=== PATIENT | female | born 1995 | race African-American/Black ===

== ENCOUNTER 2016-06-18 09:56 | Emergency (ER) | payer OTHER ==
--- NOTE | 2016-06-18 12:53 | ED NURSING NOTES ---
Clinical Report - Nurses [facility] [address] [place] [address] 06/18/2016 9:58 Patient: HUNTER CHACON TRIAGE Triage time 1030. Acuity: LEVEL 4. Chief Complaint: COUGH, RUNNY NOSE and SORE THROAT. --10:35 Bozena Dodd R.N. 10:30 06/18/16. BP: 140/74. HR: 104. RR: 18. O2 saturation: 100%. Temp: 99.2 F. Pain level now: 0/10. Additional comments: goes between 0-8, 0 now . --10:35 Bozena Dodd R.N. Weight: 72.5 kg estimated. Height/Length: 64 inches Per Patient. BMI: 27.5. Growth Chart Percentile: Weight: 87.1%. Height/Length: 44.9%. --10:32 Bozena Dodd R.N. Medications Mult- vit. --10:32 Bozena Dodd R.N. Ibuprofen Oral 600 mg, 3x a day as needed, last dose 0800. Mult-Vitamin/Fluoride Oral. --10:32 Bozena Dodd R.N. Allergies Penicillin. --10:31 Bozena Dodd R.N. History Arrived by private vehicle. Historian: patient. Unaccompanied. No primary care physician. This started yesterday. She has had a headache. She has had a nasal discharge (mostly clear, slight yellow). ( c/o severe headache and sore throat today, better after motrin). PAST MEDICAL HX: Negative. SURGERY HX: Tonsillectomy. SOCIAL HX: Never smoker. No alcohol use or drug use. --10:35 Bozena Dodd R.N. Interventions ID band on patient. To treatment room. --10:35 Bozena Dodd R.N. PHYSICAL ASSESSMENT 10:36 06/18/16. Ambulatory to room. Patient gowned. GENERAL / NEURO / PSYCH: Alert. Oriented X 4. Appears in no acute distress. HEENT: Runny nose. RESPIRATORY: Respirations not labored. CVS: Capillary refill less than 2 seconds. SKIN: Skin is warm and dry. --10:36 Bozena Dodd R.N. NURSING PROGRESS NOTES 10:30. Patient gowned. Head of bed elevated. Reassurance given. Patient identifiers checked. Call light placed in reach. Side rails up. Bed placed in lowest position. Patient ready for evaluation- chart flagged. --10:35 Bozena Dodd R.N. 10:40. Patient ID band checked for patient name and birthdate: patient confirmed. Throat swab obtained for rapid strep; labeled in the presence of the patient and sent to lab. --10:48 Bozena Dodd R.N. 12:00 resting quietly, waiting for lab results. --12:43 Bozena Dodd R.N. DISPOSITION / DISCHARGE 12:50. Condition at departure: unchanged and stable. No learning barriers present. Discharge instructions provided and reviewed with the patient. Reviewed medication(s) (z-rosa maria, lortab liquid). Patient verbalized understanding. Written instructions provided in Setswana. The patient was discharged home and unaccompanied at time of discharge. She left the Emergency Department ambulatory and via private vehicle. Patient driving. --13:03 Bozena Dodd R.N. 12:50 06/18/16. BP: 132/70. HR: 78. RR: 16. O2 saturation: 100%. Temp: 98.6 F. Pain level now: 0/10. --13:03 Bozena Dodd R.N. Locked/Released at 06/18/2016 13:03 by Bozena Dodd R.N.
--- NOTE | 2016-06-18 12:53 | ED ORDER SUMMARY ---
..... Patient: HUNTER CHACON OrderSheet [facility] VisitID: [id number] [address] [place] [address] 20y, F Registration Date/Time: 06/18/2016 ORDER SHEET Weight: 72.5 kg (estimated) Allergies: Penicillin GENERAL ORDERS: Culture, Strep Screen Urgent (10:50 06/18/2016 DDean R.N. per protocol) (k 10:55 TBergley) (11:09 DDean R.N.) MEDICATION ORDERS: IV FLUIDS: ORDER SHEET NOTES: [Electronically signed by Bozena Dodd R.N. (13:03 06/18/2016)] [Electronically signed by Shivam Talamantes MD (00:47 06/22/2016)] [Electronically locked/signed by Bozena Dodd R.N. (13:03 06/18/2016)]
--- NOTE | 2016-06-18 12:53 | ED CLINICAL REPORT ---
Clinical Report - Physicians/Mid Levels [facility] [address] [place] [address] 06/18/2016 9:58 Patient: HUNTER CHACON Time Seen: 10:58 Jun 18 2016. Arrived- By private vehicle. Historian- patient. CPT: ER phys charges level 3 (#[id number]). HISTORY OF PRESENT ILLNESS Chief Complaint: COUGH, SORE THROAT, MUSCLE ACHES and "FLU". 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 The illness is described as moderate. No cough, sputum production, difficulty breathing or chest discomfort or pain. No fever, muscle aches, chills, hoarseness or nasal congestion. No sinus pressure. She has had a sore throat and sinus drainage. Additional history - The patient has had contact with a sick father and sister. Symptoms of the sick contact include sore throat. (Both contacts have strep.). Similar symptoms previously: None. Recent medical care: Not recently seen/assessed. REVIEW OF SYSTEMS The patient has had a headache. No nausea, vomiting, skin rash, enlarged lymph nodes or joint pain. Denies current . All systems otherwise negative, except as recorded above. PAST HISTORY Tonsillectomy. Medications: Ibuprofen Oral 600 mg, 3x a day as needed, last dose 0800. Mult-Vitamin/Fluoride Oral. Mult- vit. Allergies: Penicillin. SOCIAL HISTORY Never smoker. No alcohol use or drug use. ADDITIONAL NOTES The nursing notes have been reviewed. PHYSICAL EXAM Vital Signs: 06/18/2016 10:30 BP: 140/74. HR: 104. RR: 18. O2 saturation: 100%. Temp: 99.2 F. Pain level now: 0/10. Appearance: Alert. No acute distress. Eyes: Eyes normal inspection. ENT: Nose normal. Moderate generalized pharyngeal erythema. No pharyngeal vesicles or ulcerations. No right tonsillar exudate or left tonsillar exudate. Uvula midline. Neck: Normal inspection. Neck supple. CVS: Normal heart rate and rhythm. Heart sounds normal. No cardiac murmur. Respiratory: No respiratory distress. Breath sounds normal. Abdomen: Nontender. Skin: Skin warm. Normal skin color. No rash. Neuro: Oriented X 3. LABS, X-RAYS, AND EKG Laboratory Tests: Culture, Strep Screen: (SASHA: 06/18/2016 10:40) ( MsgRcvd 06/20/2016 07:02) Final results Test Result Flag Units (Reference) RAPID STREP SCREEN - THROAT DATE: 06/18/16 NEGATIVE SCREEN: RAPID STREP SCREEN NEGATIVE; CONFIRMATION TO FOLLOW . DATE: 06/20/16 NO BETA STREP ISOLATED: NO BETA STREP ISOLATED . PROGRESS AND PROCEDURES Patient/family counseled. Disposition: Discharged. Condition: stable. CLINICAL IMPRESSION Acute streptococcal pharyngitis (with 2 exposures to strep.). INSTRUCTIONS No strenuous activity. Rest. Do not work for two days until better. Drink plenty of fluids. Warnings: Further evaluation is necessary. GENERAL WARNINGS: Return or contact your physician immediately if your condition worsens or changes unexpectedly, if not improving as expected, or if other problems arise. Your Current Medications: CONTINUE TAKING THE FOLLOWING MEDICATIONS: Ibuprofen Oral : 600 mg 3x a day, Last: 0800, prn. Mult- vit*. Mult-Vitamin/Fluoride Oral. Prescription Medications: Zithromax 250 mg tablets: take 2 orally today, followed by 1 daily for the next 4 days. No refills. Substitution is permissible. Hydrocodone / APAP Liquid 7.5mg/325mg/15 mL: take ten (10) mL orally every 6 hours as needed for pain. Dispense one hundred (100) mL. No refill. Follow-up: Follow up with your doctor in one week. Understanding of the discharge instructions verbalized by patient. (Electronically signed by Shivam Talamantes MD 06/22/2016 0:47)
--- NOTE | 2016-06-18 12:53 | ED CLINICAL REPORT ---
Clinical Report - Physicians/Mid Levels [facility] [address] [place] [address] 06/18/2016 9:58 Patient: HUNTER CHACON Time Seen: 10:58 Jun 18 2016. Arrived- By private vehicle. Historian- patient. CPT: ER phys charges level 3 (#[id number]). HISTORY OF PRESENT ILLNESS Chief Complaint: COUGH, SORE THROAT, MUSCLE ACHES and "FLU". 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 The illness is described as moderate. No cough, sputum production, difficulty breathing or chest discomfort or pain. No fever, muscle aches, chills, hoarseness or nasal congestion. No sinus pressure. She has had a sore throat and sinus drainage. Additional history - The patient has had contact with a sick father and sister. Symptoms of the sick contact include sore throat. (Both contacts have strep.). Similar symptoms previously: None. Recent medical care: Not recently seen/assessed. REVIEW OF SYSTEMS The patient has had a headache. No nausea, vomiting, skin rash, enlarged lymph nodes or joint pain. Denies current . All systems otherwise negative, except as recorded above. PAST HISTORY Tonsillectomy. Medications: Ibuprofen Oral 600 mg, 3x a day as needed, last dose 0800. Mult-Vitamin/Fluoride Oral. Mult- vit. Allergies: Penicillin. SOCIAL HISTORY Never smoker. No alcohol use or drug use. ADDITIONAL NOTES The nursing notes have been reviewed. PHYSICAL EXAM Vital Signs: 06/18/2016 10:30 BP: 140/74. HR: 104. RR: 18. O2 saturation: 100%. Temp: 99.2 F. Pain level now: 0/10. Appearance: Alert. No acute distress. Eyes: Eyes normal inspection. ENT: Nose normal. Moderate generalized pharyngeal erythema. No pharyngeal vesicles or ulcerations. No right tonsillar exudate or left tonsillar exudate. Uvula midline. Neck: Normal inspection. Neck supple. CVS: Normal heart rate and rhythm. Heart sounds normal. No cardiac murmur. Respiratory: No respiratory distress. Breath sounds normal. Abdomen: Nontender. Skin: Skin warm. Normal skin color. No rash. Neuro: Oriented X 3. LABS, X-RAYS, AND EKG Laboratory Tests: Culture, Strep Screen: (SASHA: 06/18/2016 10:40) ( MsgRcvd 06/20/2016 07:02) Final results Test Result Flag Units (Reference) RAPID STREP SCREEN - THROAT DATE: 06/18/16 NEGATIVE SCREEN: RAPID STREP SCREEN NEGATIVE; CONFIRMATION TO FOLLOW . DATE: 06/20/16 NO BETA STREP ISOLATED: NO BETA STREP ISOLATED . PROGRESS AND PROCEDURES Patient/family counseled. Disposition: Discharged. Condition: stable. CLINICAL IMPRESSION Acute streptococcal pharyngitis (with 2 exposures to strep.). INSTRUCTIONS No strenuous activity. Rest. Do not work for two days until better. Drink plenty of fluids. Warnings: Further evaluation is necessary. GENERAL WARNINGS: Return or contact your physician immediately if your condition worsens or changes unexpectedly, if not improving as expected, or if other problems arise. Your Current Medications: CONTINUE TAKING THE FOLLOWING MEDICATIONS: Ibuprofen Oral : 600 mg 3x a day, Last: 0800, prn. Mult- vit*. Mult-Vitamin/Fluoride Oral. Prescription Medications: Zithromax 250 mg tablets: take 2 orally today, followed by 1 daily for the next 4 days. No refills. Substitution is permissible. Hydrocodone / APAP Liquid 7.5mg/325mg/15 mL: take ten (10) mL orally every 6 hours as needed for pain. Dispense one hundred (100) mL. No refill. Follow-up: Follow up with your doctor in one week. Understanding of the discharge instructions verbalized by patient. (Electronically signed by Shivam Talamantes MD 06/22/2016 0:47)
--- NOTE | 2016-06-18 12:53 | ED ORDER SUMMARY ---
..... Patient: HUNTER CHACON OrderSheet [facility] VisitID: [id number] [address] [place] [address] 20y, F Registration Date/Time: 06/18/2016 ORDER SHEET Weight: 72.5 kg (estimated) Allergies: Penicillin GENERAL ORDERS: Culture, Strep Screen Urgent (10:50 06/18/2016 DDean R.N. per protocol) (k 10:55 TBergley) (11:09 DDean R.N.) MEDICATION ORDERS: IV FLUIDS: ORDER SHEET NOTES: [Electronically signed by Bozena Dodd R.N. (13:03 06/18/2016)] [Electronically signed by Shivam Talamantes MD (00:47 06/22/2016)] [Electronically locked/signed by Bozena Dodd R.N. (13:03 06/18/2016)]
--- NOTE | 2016-06-18 12:53 | ED NURSING NOTES ---
Clinical Report - Nurses [facility] [address] [place] [address] 06/18/2016 9:58 Patient: HUNTER CHACON TRIAGE Triage time 1030. Acuity: LEVEL 4. Chief Complaint: COUGH, RUNNY NOSE and SORE THROAT. --10:35 Bozena Dodd R.N. 10:30 06/18/16. BP: 140/74. HR: 104. RR: 18. O2 saturation: 100%. Temp: 99.2 F. Pain level now: 0/10. Additional comments: goes between 0-8, 0 now . --10:35 Bozena Dodd R.N. Weight: 72.5 kg estimated. Height/Length: 64 inches Per Patient. BMI: 27.5. Growth Chart Percentile: Weight: 87.1%. Height/Length: 44.9%. --10:32 Bozena Dodd R.N. Medications Mult- vit. --10:32 Bozena Dodd R.N. Ibuprofen Oral 600 mg, 3x a day as needed, last dose 0800. Mult-Vitamin/Fluoride Oral. --10:32 Bozena Dodd R.N. Allergies Penicillin. --10:31 Bozena Dodd R.N. History Arrived by private vehicle. Historian: patient. Unaccompanied. No primary care physician. This started yesterday. She has had a headache. She has had a nasal discharge (mostly clear, slight yellow). ( c/o severe headache and sore throat today, better after motrin). PAST MEDICAL HX: Negative. SURGERY HX: Tonsillectomy. SOCIAL HX: Never smoker. No alcohol use or drug use. --10:35 Bozena Dodd R.N. Interventions ID band on patient. To treatment room. --10:35 Bozena Dodd R.N. PHYSICAL ASSESSMENT 10:36 06/18/16. Ambulatory to room. Patient gowned. GENERAL / NEURO / PSYCH: Alert. Oriented X 4. Appears in no acute distress. HEENT: Runny nose. RESPIRATORY: Respirations not labored. CVS: Capillary refill less than 2 seconds. SKIN: Skin is warm and dry. --10:36 Bozena Dodd R.N. NURSING PROGRESS NOTES 10:30. Patient gowned. Head of bed elevated. Reassurance given. Patient identifiers checked. Call light placed in reach. Side rails up. Bed placed in lowest position. Patient ready for evaluation- chart flagged. --10:35 Bozena Dodd R.N. 10:40. Patient ID band checked for patient name and birthdate: patient confirmed. Throat swab obtained for rapid strep; labeled in the presence of the patient and sent to lab. --10:48 Bozena Dodd R.N. 12:00 resting quietly, waiting for lab results. --12:43 Bozena Dodd R.N. DISPOSITION / DISCHARGE 12:50. Condition at departure: unchanged and stable. No learning barriers present. Discharge instructions provided and reviewed with the patient. Reviewed medication(s) (z-rosa maria, lortab liquid). Patient verbalized understanding. Written instructions provided in Occitan. The patient was discharged home and unaccompanied at time of discharge. She left the Emergency Department ambulatory and via private vehicle. Patient driving. --13:03 Bozena Dodd R.N. 12:50 06/18/16. BP: 132/70. HR: 78. RR: 16. O2 saturation: 100%. Temp: 98.6 F. Pain level now: 0/10. --13:03 Bozena Dodd R.N. Locked/Released at 06/18/2016 13:03 by Bozena Dodd R.N.
--- NOTE | 2016-06-22 00:47 | ED MAR SUMMARY ---
..... Medication Administration Record [facility] [address], [place] [id number] Patient: HUNTER CHACON Visit ID: [id number] 20y, F Weight: 72.5 kg Height/Length: 64 in BMI: 27.5 ALLERGIES: Penicillin
--- NOTE | 2016-06-22 00:47 | ED MED RECONCILIATION SUMMARY ---
Patient: HUNTER CHACON Medication Reconciliation Report [facility] VisitID: [id number] [place] [address] 20y, F Registration Date/Time: 06/18/2016 Weight: 72.5 kg Height/Length: 64 in. BMI: 27.5 ALLERGIES: Penicillin The patient's Home Medications are listed below: CONTINUE TAKING THE FOLLOWING MEDICATIONS: Ibuprofen Oral 600 mg, 3x a day, last dose: 0800 Mult- vit Mult-Vitamin/Fluoride Oral The source(s) of the original Home Medication information: Not obtained. The following Medications were given to the patient in the Emergency Department: None. The following Medications were prescribed to the patient: Zithromax 250 mg tablets: take 2 orally today, followed by 1 daily for the next 4 days. No refills. Substitution is permissible. -- Shivam Talamantes MD Hydrocodone / APAP Liquid 7.5mg/325mg/15 mL: take ten (10) mL orally every 6 hours as needed for pain. Dispense one hundred (100) mL. No refill. -- Shivam Talamantes MD
--- NOTE | 2016-06-22 00:47 | ED MAR SUMMARY ---
..... Medication Administration Record [facility] [address] [place], [place] [id number] Patient: HUNTER CHACON Visit ID: [id number] 20y, F Weight: 72.5 kg Height/Length: 64 in BMI: 27.5 ALLERGIES: Penicillin
--- NOTE | 2016-06-22 00:47 | ED MED RECONCILIATION SUMMARY ---
Patient: HUNTER HCACON Medication Reconciliation Report [facility] VisitID: [id number] [place] [address] 20y, F Registration Date/Time: 06/18/2016 Weight: 72.5 kg Height/Length: 64 in. BMI: 27.5 ALLERGIES: Penicillin The patient's Home Medications are listed below: CONTINUE TAKING THE FOLLOWING MEDICATIONS: Ibuprofen Oral 600 mg, 3x a day, last dose: 0800 Mult- vit Mult-Vitamin/Fluoride Oral The source(s) of the original Home Medication information: Not obtained. The following Medications were given to the patient in the Emergency Department: None. The following Medications were prescribed to the patient: Zithromax 250 mg tablets: take 2 orally today, followed by 1 daily for the next 4 days. No refills. Substitution is permissible. -- Shivam Talamantes MD Hydrocodone / APAP Liquid 7.5mg/325mg/15 mL: take ten (10) mL orally every 6 hours as needed for pain. Dispense one hundred (100) mL. No refill. -- Shivam Talamantes MD
--- NOTE | 2016-06-22 00:47 | ED DISCHARGE INSTRUCTIONS ---
Patient: HUNTER CHACON General Instructions [facility] VisitID: [id number] [place] [address] 20y, F Registration Date/Time: 06/18/2016 Acute streptococcal pharyngitis (with 2 exposures to strep.). INSTRUCTIONS No strenuous activity. Rest. Do not work for two days until better. Drink plenty of fluids. Warnings: Further evaluation is necessary. GENERAL WARNINGS: Return or contact your physician immediately if your condition worsens or changes unexpectedly, if not improving as expected, or if other problems arise. Your Current Medications: CONTINUE TAKING THE FOLLOWING MEDICATIONS: Ibuprofen Oral : 600 mg 3x a day, Last: 0800, prn. Mult- vit*. Mult-Vitamin/Fluoride Oral. Prescription Medications: Zithromax 250 mg tablets: take 2 orally today, followed by 1 daily for the next 4 days. No refills. Substitution is permissible. Hydrocodone / APAP Liquid 7.5mg/325mg/15 mL: take ten (10) mL orally every 6 hours as needed for pain. Dispense one hundred (100) mL. No refill. Follow-up: Follow up with your doctor in one week. Understanding of the discharge instructions verbalized by patient. ADDITIONAL INFORMATION Pharyngitis: Strep [Presumed] Your illness has the signs of a strep throat infection. Strep throat is a contagious illness. It is spread by coughing, kissing or by touching others after touching your mouth or nose. Symptoms include throat pain worse with swallowing, aching all over, headache and fever. You will be treated with an antibiotic, which should make you start to feel better within 1-2 days. Home Care: Rest at home and drink plenty of fluids to avoid dehydration. No school or work for the first two days on antibiotics. You will not be contagious after this time, and if you are feeling better, you can return to school or work. Take your antibiotics for a full 10 days, even if you feel better after the first few days of treatment. This is very important to prevent complications from the strep infection (such as heart or kidney disease). Children: Use acetaminophen (Tylenol) for fever, fussiness or discomfort. In infants over six months of age, you may use ibuprofen (Children's Motrin) instead of Tylenol. [NOTE: If your child has chronic liver or kidney disease or ever had a stomach ulcer or GI bleeding, talk with your doctor before using these medicines.] (Aspirin should never be used in anyone under 18 years of age who is ill with a fever. It may cause severe liver damage.) Adults: You may use acetaminophen (Tylenol) or ibuprofen (Motrin, Advil) to control pain or fever, unless another medicine was prescribed for this. [NOTE: If you have chronic liver or kidney disease or ever had a stomach ulcer or GI bleeding, talk with your doctor before using these medicines.] Throat lozenges or sprays (Chloraseptic and others) will reduce pain. Gargling with warm salt water will also reduce throat pain. Dissolve 1/2 teaspoon of salt in 1 glass of warm water. This is especially useful just before meals. Follow Up with your doctor or as directed by our staff if you are not improving over the next week. Get Prompt Medical Attention if any of the following occur: Fever over 100.5F (38.0C) oral, or over 101.5F (38.6C) rectal for more than three days New or worsening ear pain, sinus pain or headache Painful lumps in the back of your neck Unable to swallow liquids or open your mouth wide due to throat pain Trouble breathing or noisy breathing Muffled voice New rash Hydrocodone Bitartrate, Acetaminophen Oral solution What is this medicine? ACETAMINOPHEN; HYDROCODONE (a set a CHARLENE chidi fen; oli droe KOE done) is a pain reliever. It is used to treat mild to moderate pain. How should I use this medicine? Take this medicine by mouth. Use a specially marked spoon or dropper to measure your dose. Ask your pharmacist if you do not have a dropper or measuring spoon. Do not use a household spoon. Follow the directions on the prescription label. If the medicine upsets your stomach, take it with food or milk. Do not take more medicine than you are told to take. Talk to your land use planner regarding the use of this medicine in children. This medicine is not approved for use in children. What side effects may I notice from receiving this medicine? Side effects that you should report to your doctor or health caregiver services home as soon as possible: allergic reactions like skin rash, itching or hives, swelling of the face, lips, or tongue breathing problems confusion feeling faint or lightheaded, falls stomach pain yellowing of the eyes or skin Side effects that usually do not require medical attention (report to your doctor or health caregiver services home if they continue or are bothersome): nausea, vomiting stomach upset What may interact with this medicine? alcohol antihistamines isoniazid medicines for depression, anxiety, or psychotic disturbances medicines for sleep muscle relaxants naltrexone narcotic medicines (opiates) for pain phenobarbital ritonavir tramadol What if I miss a dose? If you miss a dose, take it as soon as you can. If it is almost time for your next dose, take only that dose. Do not take double or extra doses. Where should I keep my medicine? Keep out of the reach of children. This medicine can be abused. Keep your medicine in a safe place to protect it from theft. Do not share this medicine with anyone. Selling or giving away this medicine is dangerous and against the law. Store at room temperature between 20 and 25 degrees C (68 and 77 degrees F). Protect from light. Keep container tightly closed. Throw away any unused medicine after the expiration date. Discard unused medicine and used packaging carefully. Pets and children can be harmed if they find used or lost packages. What should I tell my health care provider before I take this medicine? They need to know if you have any of these conditions: brain tumor Crohn's disease, inflammatory bowel disease, or ulcerative colitis drink more than 3 alcohol-containing drinks per day drug abuse or addiction head injury heart or circulation problems kidney disease or problems going to the bathroom liver disease lung disease, asthma, or breathing problems an unusual or allergic reaction to acetaminophen, hydrocodone, other opioid analgesics, other medicines, foods, dyes, or preservatives or trying to get breast-feeding What should I watch for while using this medicine? Tell your doctor or health caregiver services home if your pain does not go away, if it gets worse, or if you have new or a different type of pain. You may develop tolerance to the medicine. Tolerance means that you will need a higher dose of the medicine for pain relief. Tolerance is normal and is expected if you take this medicine for a long time. Do not suddenly stop taking your medicine because you may develop a severe reaction. Your body becomes used to the medicine. This does NOT mean you are addicted. Addiction is a behavior related to getting and using a drug for a non-medical reason. If you have pain, you have a medical reason to take pain medicine. Your doctor will tell you how much medicine to take. If your doctor wants you to stop the medicine, the dose will be slowly lowered over time to avoid any side effects. You may get drowsy or dizzy when you first start taking the medicine or change doses. Do not drive, use machinery, or do anything that may be dangerous until you know how the medicine affects you. Stand or sit up slowly. There are different types of narcotic medicines (opiates) for pain. If you take more than one type at the same time, you may have more side effects. Give your health care provider a list of all medicines you use. Your doctor will tell you how much medicine to take. Do not take more medicine than directed. Call emergency for help if you have problems breathing. The medicine will cause constipation. Try to have a bowel movement at least every 2 to 3 days. If you do not have a bowel movement for 3 days, call your doctor or health caregiver services home. Too much acetaminophen can be very dangerous. Do not take Tylenol (acetaminophen) or medicines that contain acetaminophen with this medicine. Many non-prescription medicines contain acetaminophen. Always read the labels carefully. You have been given the following additional information: Pharyngitis, Strep (Presumed) Hydrocodone Bitartrate, Acetaminophen Oral solution No strenuous activity. Rest. Do not work for two days until better. (Electronically signed by Shivam Talamantes MD 06/22/2016 0:47)
== END 2016-06-18 12:50 | disposition home or self-care (01) ==
LOC: ED SRH 09:56
DX: J02.0 Streptococcal pharyngitis (principal); Z88.0 Allergy status to penicillin
CPT/HCPCS: 90154; 90159

== ENCOUNTER 2016-06-19 11:19 | Emergency (ER) | payer OTHER ==
--- NOTE | 2016-06-19 13:05 | DIAGNOSTIC IMAGING REPORT ---
PROCEDURE: XR CHEST 2 VIEW INDICATION: HEMOPTYSIS TECHNIQUE: PA and lateral views. COMPARISON: None. FINDINGS: Lungs are clear. Heart and mediastinum are normal. Thorax is normal. IMPRESSION: 1. Negative chest.
--- NOTE | 2016-06-19 13:48 | ED ORDER SUMMARY ---
..... Patient: HUNTER CHACON OrderSheet [facility] VisitID: [id number] [place] [address] 20y, F Registration Date/Time: 06/19/2016 ORDER SHEET Weight: 29.4 kg (stated) Allergies: Penicillins GENERAL ORDERS: Chest 2V Urgent (12:31 06/19/2016 Emily RAMIREZ) (Ack 12:33 LTapper) (12:59 SRoberts R.N.) MEDICATION ORDERS: Zithromax PO 500 mg (NOW) (12:52 06/19/2016 Emiyl RAMIREZ) (Ack 13:03 SRoberts R.N.) (13:07 SRobermanuela R.N.) IV FLUIDS: ORDER SHEET NOTES: [Electronically signed by Carol Nielsen R.N. (14:00 06/19/2016)] [Electronically signed by Anamaria Morel MD (02:38 06/25/2016)] [Electronically locked/signed by Carol Nielsen R.N. (14:00 06/19/2016)]
--- NOTE | 2016-06-19 13:48 | ED NURSING NOTES ---
Clinical Report - Nurses [facility] [address] [place] [address] 06/19/2016 11:19 Patient: HUNTER CHACON TRIAGE Triage time 11:28. Acuity: LEVEL 3. Chief Complaint: COUGH and FEVER and ("coughing up blood". Seen here yesterday for strep throat. Started on zithromax and vicodin. Coughing up blood and green mucus. Happened one time, this am.). Alert. No acute distress. SEPSIS SCREEN: Sepsis Screen: negative. Negative (no infection suspected/documented). ESTUARDO COMA SCORE: Estuardo Coma Scale: 15- eyes open spontaneously (4); best verbal response- oriented x 4 (5); best motor response- obeys commands (6). --11:40 Carol Nielsen R.N. 11:33 06/19/16. BP: 121/74 taken on the left arm, while sitting. HR: 94. RR: 20. O2 saturation: 99%. Temp: 98.5 F. Pain level now: 07/31. --11:40 Carol Nielsen R.N. 11:33. --13:57 Carol Nielsen R.N. Weight: 29.4 kg stated. Height/Length: 64 inches Per Patient. BMI: 11.1. Growth Chart Percentile: Weight: 0%. Height/Length: 44.9%. --11:39 Carol Nielsen R.N. Medications Ibuprofen Oral. --11:28 Carol Nielsen R.N. Zithromax Z-Sarthak Oral. --11:37 Carol Nielsen R.N. Vicodin 5/325mg prn. --11:37 Carol Nielsen R.N. Medication/allergy information source: the patient. --11:40 Carol Nielsen R.N. Allergies Penicillins. --11:28 Carol Nielsen R.N. History Arrived by private vehicle. Historian: patient. Primary physician (ana maria). ( drove self). Onset. (4 days ago, for the throat issue). She has had chest congestion. ( mucusy sputum). No difficulty breathing. 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 PAST MEDICAL HX: Immunizations: status is unknown. Last normal menstrual period now. SOCIAL HX: Smoker- current status unknown. No alcohol use or drug use. FALL RISK ASSESSMENT: Fall risk assessment completed. No fall risk identified. NUTRITIONAL RISK ASSESSMENT: The nutritional risk assessment revealed no deficiencies. FUNCTIONAL ASSESSMENT: Functional assessment: no impairments noted. LEARNING NEEDS ASSESSMENT: The learning needs assessment revealed no barriers. SKIN INTEGRITY ASSESSMENT: Skin integrity risk assessment completed. No skin integrity risk identified. --11:40 Carol Nielsen R.N. ( Patient wore face mask from the wait room, continues in the room.). --13:57 Carol Nielsen R.N. PROBLEMS: Pharyngitis. URI. INFECTION ON THE CEREBELLUM. --11:29 Carol Nielsen R.N. ADDITIONAL SURGERIES: Tonsillectomy. --11:29 Carol Nielsen R.N. Interventions ID band on patient. To room. --11:40 Carol Nielsen R.N. PHYSICAL ASSESSMENT Ambulatory to room. Patient gowned. GENERAL / NEURO / PSYCH: Alert. Oriented X 4. Appears in no acute distress. HEENT: Voice within normal limits. Mucous membranes are pink. RESPIRATORY: Respirations not labored. CVS: Capillary refill less than 2 seconds. SKIN: Skin is warm and dry. Normal skin turgor. --11:40 Carol Nielsen R.N. NURSING PROGRESS NOTES Patient gowned. Head of bed elevated. Two patient identifiers checked. Call light placed in reach. Side rails up x 1. Bed placed in lowest position. Brakes of bed on. Patient ready for evaluation. --11:41 Carol Nielsen R.N. 13:07 06/19/2016 Zithromax PO 500 mg given. Allergies verified and confirmed 5 rights. --13:07 Carol Nielsen R.N. 13:49 06/19/16. BP: 109/74. HR: 72. RR: 20. O2 saturation: 98% on room air. Pain level now: 07/03. --13:50 Carol Nielsen R.N. DISPOSITION / DISCHARGE 13:35. Condition at departure: unchanged. ( Patient wore the face mask the entire time in the ED.). Reviewed medication(s) (Continue to take the antibiotic given yesterday.). Treatments reviewed. Patient verbalized understanding. Written instructions provided in Sami. The patient was discharged home. She left the Emergency Department ambulatory and via private vehicle. Patient driving. Medication list reviewed and validated. --13:59 Carol Nielsen R.N. 13:49 06/19/16. BP: 109/74. HR: 72. RR: 20. O2 saturation: 98% on room air. Pain level now: 07/03. 11:33 06/19/16. BP: 121/74 taken on the left arm, while sitting. HR: 94. RR: 20. O2 saturation: 99%. Temp: 98.5 F. Pain level now: 07/31. --13:59 Carol Nielsen R.N. Locked/Released at 06/19/2016 14:00 by Carol Nielsen R.N.
--- NOTE | 2016-06-19 13:48 | ED ORDER SUMMARY ---
..... Patient: HUNTER CHACON OrderSheet [facility] VisitID: [id number] [place] [address] 20y, F Registration Date/Time: 06/19/2016 ORDER SHEET Weight: 29.4 kg (stated) Allergies: Penicillins GENERAL ORDERS: Chest 2V Urgent (12:31 06/19/2016 Emily RAMIREZ) (Ack 12:33 LTapper) (12:59 SRoberts R.N.) MEDICATION ORDERS: Zithromax PO 500 mg (NOW) (12:52 06/19/2016 Emily RAMIREZ) (Ack 13:03 SRoberts R.N.) (13:07 SRobermanuela R.N.) IV FLUIDS: ORDER SHEET NOTES: [Electronically signed by Carol Nielsen R.N. (14:00 06/19/2016)] [Electronically signed by Anamaria Morel MD (02:38 06/25/2016)] [Electronically locked/signed by Carol Nielsen R.N. (14:00 06/19/2016)]
--- NOTE | 2016-06-19 13:48 | ED CLINICAL REPORT ---
Clinical Report - Physicians/Mid Levels [facility] [address] [place] [address] 06/19/2016 11:19 Patient: HUNTER CHACON Time Seen: 11:49. Arrived- By private vehicle. Historian- patient. HISTORY OF PRESENT ILLNESS Chief Complaint: COUGH. This started today and is still present. The illness is described as mild. The patient has had a moderate cough productive of yellow sputum. She has had sputum production and a sore throat. No difficulty breathing, chest discomfort or pain, fever or muscle aches. No chills, hoarseness, nasal congestion or discharge or sinus pressure. No sinus drainage or ear pain. Additional history - No known contact with a sick individual. Similar symptoms previously: None. Recent medical care: The patient was seen recently at this facility in the emergency department. ( Pt was dx with strep 2 days ago.). REVIEW OF SYSTEMS No headache, eye discomfort, nausea, vomiting or diarrhea. No abdominal pain, hay fever, pedal edema, calf pain or difficulty with urination. No skin rash, enlarged lymph nodes or joint pain. Denies current . All systems otherwise negative, except as recorded above. PAST HISTORY Problems: LNMP - Last Normal Menstrual Period. Additional Surgeries: Tonsillectomy. Medications: Vicodin 5/325mg prn. Zithromax Z-Sarthak Oral. Ibuprofen Oral. Allergies: Penicillins. SOCIAL HISTORY Smoker- current status unknown. No alcohol use or drug use. ADDITIONAL NOTES The nursing notes have been reviewed. PHYSICAL EXAM Vital Signs: 06/19/2016 11:33 BP: 121/74. HR: 94. RR: 20. O2 saturation: 99%. Temp: 98.5 F. Pain level now: 310. Have been reviewed. Appearance: Alert. No acute distress. Eyes: Pupils equal, round and reactive to light. Eyes normal inspection. ENT: Nose normal. Neck: Normal inspection. Neck supple. CVS: Normal heart rate and rhythm. Heart sounds normal. Pulses normal. Respiratory: No respiratory distress. Breath sounds normal. Abdomen: Soft and nontender. Back: Normal inspection. No CVA tenderness. Skin: Skin warm and dry. Normal skin color. No rash. Normal skin turgor. Extremities: Extremities exhibit normal ROM. No lower extremity edema. Neuro: Oriented X 3. No motor deficit. No sensory deficit. LABS, X-RAYS, AND EKG Pulse Oximetry: 06/19/2016 11:33 O2 saturation: 99%. (FIO2 - room air). Interpretation: normal. PROGRESS AND PROCEDURES Course of Care: No bleeding was noted on exam. X-ray was negative. Picture of bloody sputum was shown by pt, and this did appear fairly minimal. No emergent condition identified. Patient counseled in person regarding the patient's stable condition, test results, diagnosis and need for follow-up. Concerns were addressed. Old medical records reviewed. Disposition: Discharged. Condition: stable. CLINICAL IMPRESSION Minor hemoptysis INSTRUCTIONS Drink plenty of fluids. (Your x-ray looks good. Your throat also looks quite good. Please keep taking the antibiotics, as directed, until they are gone. There is no sign of a serious cause of your bleeding.). Warnings: GENERAL WARNINGS: Return or contact your physician immediately if your condition worsens or changes unexpectedly, if not improving as expected, or if other problems arise. Your Current Medications: CONTINUE TAKING THE FOLLOWING MEDICATIONS: Ibuprofen Oral. Vicodin 5/325mg prn*. Zithromax Z-Sarthak Oral. Follow-up: Follow up with your doctor as needed. Understanding of the discharge instructions verbalized by patient. (Electronically signed by Anamaria Morel MD 06/25/2016 2:38)
--- NOTE | 2016-06-19 13:48 | ED NURSING NOTES ---
Clinical Report - Nurses [facility] [address] [place] [address] 06/19/2016 11:19 Patient: HUNTER CHACON TRIAGE Triage time 11:28. Acuity: LEVEL 3. Chief Complaint: COUGH and FEVER and ("coughing up blood". Seen here yesterday for strep throat. Started on zithromax and vicodin. Coughing up blood and green mucus. Happened one time, this am.). Alert. No acute distress. SEPSIS SCREEN: Sepsis Screen: negative. Negative (no infection suspected/documented). ESTUARDO COMA SCORE: Estuardo Coma Scale: 15- eyes open spontaneously (4); best verbal response- oriented x 4 (5); best motor response- obeys commands (6). --11:40 Carol Nielsen R.N. 11:33 06/19/16. BP: 121/74 taken on the left arm, while sitting. HR: 94. RR: 20. O2 saturation: 99%. Temp: 98.5 F. Pain level now: 07/31. --11:40 Carol Nielsen R.N. 11:33. --13:57 Carol Nielsen R.N. Weight: 29.4 kg stated. Height/Length: 64 inches Per Patient. BMI: 11.1. Growth Chart Percentile: Weight: 0%. Height/Length: 44.9%. --11:39 Carol Nielsen R.N. Medications Ibuprofen Oral. --11:28 Carol Nielsen R.N. Zithromax Z-Sarthak Oral. --11:37 Carol Nielsen R.N. Vicodin 5/325mg prn. --11:37 Carol Nielsen R.N. Medication/allergy information source: the patient. --11:40 Carol Nielsen R.N. Allergies Penicillins. --11:28 Carol Nielsen R.N. History Arrived by private vehicle. Historian: patient. Primary physician (ana maria). ( drove self). Onset. (4 days ago, for the throat issue). She has had chest congestion. ( mucusy sputum). No difficulty breathing. 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 PAST MEDICAL HX: Immunizations: status is unknown. Last normal menstrual period now. SOCIAL HX: Smoker- current status unknown. No alcohol use or drug use. FALL RISK ASSESSMENT: Fall risk assessment completed. No fall risk identified. NUTRITIONAL RISK ASSESSMENT: The nutritional risk assessment revealed no deficiencies. FUNCTIONAL ASSESSMENT: Functional assessment: no impairments noted. LEARNING NEEDS ASSESSMENT: The learning needs assessment revealed no barriers. SKIN INTEGRITY ASSESSMENT: Skin integrity risk assessment completed. No skin integrity risk identified. --11:40 Carol Nielsen R.N. ( Patient wore face mask from the wait room, continues in the room.). --13:57 Carol Nielsen R.N. PROBLEMS: Pharyngitis. URI. INFECTION ON THE CEREBELLUM. --11:29 Carol Nielsen R.N. ADDITIONAL SURGERIES: Tonsillectomy. --11:29 Carol Nielsen R.N. Interventions ID band on patient. To room. --11:40 Carol Nielsen R.N. PHYSICAL ASSESSMENT Ambulatory to room. Patient gowned. GENERAL / NEURO / PSYCH: Alert. Oriented X 4. Appears in no acute distress. HEENT: Voice within normal limits. Mucous membranes are pink. RESPIRATORY: Respirations not labored. CVS: Capillary refill less than 2 seconds. SKIN: Skin is warm and dry. Normal skin turgor. --11:40 Carol Nielsen R.N. NURSING PROGRESS NOTES Patient gowned. Head of bed elevated. Two patient identifiers checked. Call light placed in reach. Side rails up x 1. Bed placed in lowest position. Brakes of bed on. Patient ready for evaluation. --11:41 Carol Nielsen R.N. 13:07 06/19/2016 Zithromax PO 500 mg given. Allergies verified and confirmed 5 rights. --13:07 Carol Nielsen R.N. 13:49 06/19/16. BP: 109/74. HR: 72. RR: 20. O2 saturation: 98% on room air. Pain level now: 07/03. --13:50 Carol Nielsen R.N. DISPOSITION / DISCHARGE 13:35. Condition at departure: unchanged. ( Patient wore the face mask the entire time in the ED.). Reviewed medication(s) (Continue to take the antibiotic given yesterday.). Treatments reviewed. Patient verbalized understanding. Written instructions provided in Georgian. The patient was discharged home. She left the Emergency Department ambulatory and via private vehicle. Patient driving. Medication list reviewed and validated. --13:59 Carol Nielsen R.N. 13:49 06/19/16. BP: 109/74. HR: 72. RR: 20. O2 saturation: 98% on room air. Pain level now: 07/03. 11:33 06/19/16. BP: 121/74 taken on the left arm, while sitting. HR: 94. RR: 20. O2 saturation: 99%. Temp: 98.5 F. Pain level now: 07/31. --13:59 Carol Nielsen R.N. Locked/Released at 06/19/2016 14:00 by Carol Nielsen R.N.
--- NOTE | 2016-06-25 02:39 | ED MED RECONCILIATION SUMMARY ---
Patient: HUNTER CHACON Medication Reconciliation Report [facility] VisitID: [id number] [address] [place] [address] 20y, F Registration Date/Time: 06/19/2016 Weight: 29.4 kg Height/Length: 64 in. BMI: 11.1 ALLERGIES: Penicillins The patient's Home Medications are listed below: CONTINUE TAKING THE FOLLOWING MEDICATIONS: Ibuprofen Oral Vicodin 5/325mg prn Zithromax Z-Sarthak Oral The source(s) of the original Home Medication information: patient The following Medications were given to the patient in the Emergency Department: Zithromax [PO] PO 500 mg, administered: 06/19/2016 1:07:00 PM The following Medications were prescribed to the patient: None.
--- NOTE | 2016-06-25 02:39 | ED MAR SUMMARY ---
..... Medication Administration Record [facility] [address] [address] Patient: HUNTER CHACON Visit ID: [id number] 20y, F Weight: 29.4 kg Height/Length: 64 in BMI: 11.1 ALLERGIES: Penicillins Given 13:07 06/19/2016 Carol Nielsen R.N. Medication Administered: ZITHROMAX [PO], Dose: 500 mg PO. Medication Ordered: Zithromax PO 500 mg (NOW).
--- NOTE | 2016-06-25 02:39 | ED MAR SUMMARY ---
..... Medication Administration Record [facility] [address] [address] Patient: HUNTER CHACON Visit ID: [id number] 20y, F Weight: 29.4 kg Height/Length: 64 in BMI: 11.1 ALLERGIES: Penicillins Given 13:07 06/19/2016 Carol Nielsen R.N. Medication Administered: ZITHROMAX [PO], Dose: 500 mg PO. Medication Ordered: Zithromax PO 500 mg (NOW).
--- NOTE | 2016-06-25 02:39 | ED MED RECONCILIATION SUMMARY ---
Patient: HUNTER CHACON Medication Reconciliation Report [facility] VisitID: [id number] [address] [place] [address] 20y, F Registration Date/Time: 06/19/2016 Weight: 29.4 kg Height/Length: 64 in. BMI: 11.1 ALLERGIES: Penicillins The patient's Home Medications are listed below: CONTINUE TAKING THE FOLLOWING MEDICATIONS: Ibuprofen Oral Vicodin 5/325mg prn Zithromax Z-Sarthak Oral The source(s) of the original Home Medication information: patient The following Medications were given to the patient in the Emergency Department: Zithromax [PO] PO 500 mg, administered: 06/19/2016 1:07:00 PM The following Medications were prescribed to the patient: None.
--- NOTE | 2016-06-25 02:39 | ED DISCHARGE INSTRUCTIONS ---
Patient: HUNTER CHACON General Instructions [facility] VisitID: [id number] [place] [address] 20y, F Registration Date/Time: 06/19/2016 Minor hemoptysis INSTRUCTIONS Drink plenty of fluids. (Your x-ray looks good. Your throat also looks quite good. Please keep taking the antibiotics, as directed, until they are gone. There is no sign of a serious cause of your bleeding.). Warnings: GENERAL WARNINGS: Return or contact your physician immediately if your condition worsens or changes unexpectedly, if not improving as expected, or if other problems arise. Your Current Medications: CONTINUE TAKING THE FOLLOWING MEDICATIONS: Ibuprofen Oral. Vicodin 5/325mg prn*. Zithromax Z-Sarthak Oral. Follow-up: Follow up with your doctor as needed. Understanding of the discharge instructions verbalized by patient. ADDITIONAL INFORMATION Hemoptysis Hemoptysis is the medical term for "coughing up blood". There are many causes for this including minor illnesses such as bronchitis. Hemoptysis can also be an early sign of more serious illnesses such as a pneumonia, blood clot in the lung, cancer, tuberculosis and pneumonia. Less common causes of hemoptysis can be hard to diagnose in an emergency department or a clinic. Therefore, further testing will be needed if the symptoms continue. Home Care: Avoid exposure to cigarette smoke. Smoke irritates the bronchial passages. Unless you are taking daily aspirin to prevent stroke or heart attack, avoid aspirin and products that contain aspirin. Aspirin affects the clotting system and may make hemoptysis worse. If you have a lung infection, extra fluid will help loosen secretions in the lungs. [id number] cough medicines which contain "dextromethorphan" (such as Robitussin DM) may help reduce coughing. If you were prescribed an antibiotic, take it until it is all gone. Take it even if you are feeling better after only a few days. Follow Up with your doctor or as advised if the bloody cough continues for more than 24 hours. Get Prompt Medical Attention if any of the following occur: Coughing up more than 1 cup of blood within 24 hours Fever over 100.4F (38.0C) for more than three days Trouble breathing, wheezing or pain with breathing Chest pain or chest pressure Feeling very weak or fainting You have been given the following additional information: Hemoptysis (Electronically signed by Anamaria Morel MD 06/25/2016 2:38)
== END 2016-06-19 13:35 | disposition home or self-care (01) ==
LOC: ED SRH 11:19
DX: R04.2 Hemoptysis (principal); Z79.891 Long term (current) use of opiate analgesic; Z79.1 Long term (current) use of non-steroidal anti-inflammatories (NSAID); Z79.2 Long term (current) use of antibiotics; Z88.0 Allergy status to penicillin

== ENCOUNTER 2016-09-06 08:05 | Emergency (ER) | payer OTHER ==
--- NOTE | 2016-09-06 09:09 | ED NURSING NOTES ---
Clinical Report - Nurses [facility] [address] [place] [address] 09/06/2016 8:06 Patient: HUNTER CHACON TRIAGE Triage time 08:Sep 06 2016. Acuity: LEVEL 3. Chief Complaint: ABDOMINAL PAIN. ESTUARDO COMA SCORE: Estuardo Coma Scale: 15- eyes open spontaneously (4); best verbal response- oriented x 4 (5); best motor response- obeys commands (6). --08:23 Jhonatan Goel R.N. 08:15 09/06/16. BP: 102/77. HR: 73. RR: 18. O2 saturation: 97%. Temp: 98.2 F. --08:23 Jhonatan Goel R.N. 09:22 09/06/16. Pain level now 5/10. --09:23 Jhonatan Goel R.N. Weight: 72.1 kg stated. Height/Length: 64 inches Per Patient. BMI: 27.3. --08:23 Jhonatan Goel R.N. Medications Zygst. --08:20 Jhonatan Goel R.N. Control Pills. --08:20 Jhonatan Goel R.N. Allergies Penicillins. --08:20 Jhonatan Goel R.N. History Arrived by private vehicle. Historian: patient. Onset. (since the 7th grade). ( When she eats especially high acid foods she gets pains in her upper gastric area. She is aware she has acid reflux but she feels like it's getting worse and this am it is really bothering her. She has not eaten this am yet last night ate popcorn chicken. Pain is a feeling of fullness or needing to go poop.). She has had nausea, constipation and abdominal pain. No vomiting, diarrhea or fever. 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 PAST MEDICAL HX: Gastroesophageal reflux disease. No history of diabetes mellitus. No history of peptic ulcer disease or gallstones. Immunizations: up-to-date. Last normal menstrual period- August 17. SOCIAL HX: Never smoker. No alcohol use or drug use. No known contact with a sick individual. SELF HARM ASSESSMENT: A self harm assessment was performed. The patient answered "no" to the question "Have you recently felt down, depressed, or hopeless?" and "Do you have thoughts of harming or killing yourself?". FALL RISK ASSESSMENT: Fall risk assessment completed. No fall risk identified. NUTRITIONAL RISK ASSESSMENT: The nutritional risk assessment revealed no deficiencies. FUNCTIONAL ASSESSMENT: Functional assessment: no impairments noted. LEARNING NEEDS ASSESSMENT: The learning needs assessment revealed no barriers. ABUSE ASSESSMENT: Abuse assessment: (yes) The patient was asked "Do you feel safe in your home?". SKIN INTEGRITY ASSESSMENT: Skin integrity risk assessment completed. No skin integrity risk identified. --08: Jhonatan Goel R.N. PROBLEMS: Hemoptysis. Pharyngitis. URI. INFECTION ON THE CEREBELLUM. --08: Jhonatan Goel R.N. ADDITIONAL SURGERIES: Tonsillectomy. --08: Jhonatan Goel R.N. Interventions ID and allergy band on patient. --08: Jhonatan Goel R.N. PHYSICAL ASSESSMENT Ambulatory to room. GENERAL / NEURO / PSYCH: Alert. Oriented X 4. Appears in no acute distress. HEENT: Mucous membranes are pink. RESPIRATORY: Respirations not labored. Breath sounds within normal limits. CVS: Normal sinus rhythm noted. Capillary refill less than 2 seconds. GI / : The patient has diarrhea. Abdominal tenderness in the epigastric area. No abdominal distention, guarding or mass present in the abdominal region. No nausea noted. No emesis noted. ( Last BM yesterday am loose stool). SKIN: Skin is warm and dry. --08:24 Jhonatan Goel R.N. NURSING PROGRESS NOTES The initial plan of care for this patient includes an assessment with efforts to address patient positioning, appropriate ambient lighting and comfortable environmental temperature; impairment of the gastrointestinal system. Pulse oximeter and NIBP monitor placed on patient. Patient gowned. Head of bed elevated 90 degrees. Reassurance given. Call light placed in reach. Side rails up x 1. Bed placed in lowest position. Brakes of bed on. --08:24 Jhonatan Goel R.N. 08:54 09/06/2016 GI COCKTAIL WHITE (Simethicone) PO Oral Suspension 30 mL given. Allergies verified and confirmed 5 rights. --09:09 Jhonatan Goel R.N. 09:09 09/06/2016 Sucralfate PO Oral Suspension 2 gm given. Allergies verified and confirmed 5 rights. --09:10 Jhonatan Goel R.N. 09:10 09/06/2016 Protonix (Pantoprazole Sodium) PO Tablets 40 mg given. Allergies verified and confirmed 5 rights. --09: Jhonatan Goel R.N. 09:10 09/06/2016 Zofran ODT (Ondansetron) PO Oral Disintegrating Tablets 4 mg given. Allergies verified and confirmed 5 rights. --09: Jhonatan Goel R.N. DISPOSITION / DISCHARGE Departure time: 09:20 Sep 06 2016. Condition at departure: improved. No learning barriers present. Discharge instructions provided and reviewed with the patient. Reviewed warnings. Reviewed medication(s). Treatments reviewed. Reviewed referrals. Patient verbalized understanding. Written instructions provided in Faroese. The patient was discharged home. She left the Emergency Department ambulatory and via private vehicle. Patient driving. --09:20 Jhonatan Goel R.N. 09:18 09/06/16. BP: 121/45. HR: 72. RR: 18. O2 saturation: 98%. Temp: 98.2 F. Pain level now 0/10. --09:20 Jhonatan Goel R.N. Locked/Released at 09/11/2016 9:55 by Jhonatan Goel R.N.
--- NOTE | 2016-09-06 09:09 | ED CLINICAL REPORT ---
Clinical Report - Physicians/Mid Levels [facility] [address] [place] [address] 09/06/2016 8:06 Patient: HUNTER CHACON Time Seen: 08:34 Sep 06 2016. Arrived- By private vehicle. Historian- patient. CPT: ER phys charges level 4 (#[id number]). HISTORY OF PRESENT ILLNESS Chief Complaint: ABDOMINAL PAIN. This started today Onset. (since the 7th grade). ( When she eats especially high acid foods she gets pains in her upper gastric area. She is aware she has acid reflux but she feels like it's getting worse and this am it is really bothering her. She has not eaten this am yet last night ate popcorn chicken. Pain is a feeling of fullness or needing to go poop.). She has had nausea, constipation and abdominal pain. No vomiting, diarrhea or fever. and is still present. It is described as "pain" and burning and it is described as located in the epigastric area. At its maximum, severity described as moderate. When seen in the E.D., severity described as moderate. Modifying factors- worsened by food. Not relieved by anything. No nausea, vomiting or diarrhea. She has had loss of appetite. No recent travel. Similar symptoms previously: Several times, as bad. Diagnosis: (reflux). Recent medical care: Not recently seen/assessed. REVIEW OF SYSTEMS No constipation, black stools, hematemesis, difficulty with urination or pain with urination. No urinary frequency, fever, sore throat, chest pain or difficulty breathing. No cough, joint pain, chills or back pain. Denies current . All systems otherwise negative, except as recorded above. PAST HISTORY Hemoptysis. Pharyngitis. URI. INFECTION ON THE CEREBELLUM. ADDITIONAL SURGERIES: Tonsillectomy. Medications: Control Pills. Zygst. Allergies: Penicillins. SOCIAL HISTORY Never smoker. No alcohol use or drug use. ADDITIONAL NOTES The nursing notes have been reviewed. PHYSICAL EXAM Vital Signs: 09/06/2016 08:15 BP: 102/77. HR: 73. RR: 18. O2 saturation: 97%. Temp: 98.2 F. Appearance: Alert. No acute distress. Eyes: Eyes normal inspection. ENT: Pharynx normal. Neck: Normal inspection. CVS: Normal heart rate and rhythm. Heart sounds normal. Pulses normal. Respiratory: No respiratory distress. Breath sounds normal. Chest nontender. Abdomen: Soft. Moderate tenderness in the epigastric area. Bowel sounds normal. No mass. Back: Normal inspection. Skin: Skin warm. Normal skin color. No rash. Extremities: Extremities exhibit normal ROM. Neuro: Oriented X 3. PROGRESS AND PROCEDURES Course of Care: White GI cocktail. Symptoms much better. Carafat e 20 ml po Protonix 40 mg po Zofran 4 mg ODT po. Patient is stable. Patient/family counseled. Disposition: Discharged. Condition: stable and improved. CLINICAL IMPRESSION Gastroesophageal reflux disease with esophagitis. INSTRUCTIONS Do not work today, for one day until better. Avoid alcohol and NSAIDS. NSAIDS include aspirin, ibuprofen (Advil) and naproxen (Aleve). Avoid spicy foods. caffeine. (Put bed posts on 4 inch blocks.). Warnings: Further evaluation is necessary. GENERAL WARNINGS: Return or contact your physician immediately if your condition worsens or changes unexpectedly, if not improving as expected, or if other problems arise. Prescription Medications: Carafate 1 gm tablets: four times daily (30 minutes before meals and at bedtime) for 10 days. Dispense forty (40). No refills. Prilosec 40 mg capsules: take 1 capsule orally every day for 10 days. Dispense ten (10). No refill. Substitution is permissible. Follow-up: Return to the emergency department if getting worse. Follow up with your doctor in ten days. Call for an appointment. Understanding of the discharge instructions verbalized by patient. (Electronically signed by Shivam Talamantes MD 09/09/2016 20:53)
--- NOTE | 2016-09-06 09:09 | ED CLINICAL REPORT ---
Clinical Report - Physicians/Mid Levels [facility] [address] [place] [address] 09/06/2016 8:06 Patient: HUNTER CHACON Time Seen: 08:34 Sep 06 2016. Arrived- By private vehicle. Historian- patient. CPT: ER phys charges level 4 (#[id number]). HISTORY OF PRESENT ILLNESS Chief Complaint: ABDOMINAL PAIN. This started today Onset. (since the 7th grade). ( When she eats especially high acid foods she gets pains in her upper gastric area. She is aware she has acid reflux but she feels like it's getting worse and this am it is really bothering her. She has not eaten this am yet last night ate popcorn chicken. Pain is a feeling of fullness or needing to go poop.). She has had nausea, constipation and abdominal pain. No vomiting, diarrhea or fever. and is still present. It is described as "pain" and burning and it is described as located in the epigastric area. At its maximum, severity described as moderate. When seen in the E.D., severity described as moderate. Modifying factors- worsened by food. Not relieved by anything. No nausea, vomiting or diarrhea. She has had loss of appetite. No recent travel. Similar symptoms previously: Several times, as bad. Diagnosis: (reflux). Recent medical care: Not recently seen/assessed. REVIEW OF SYSTEMS No constipation, black stools, hematemesis, difficulty with urination or pain with urination. No urinary frequency, fever, sore throat, chest pain or difficulty breathing. No cough, joint pain, chills or back pain. Denies current . All systems otherwise negative, except as recorded above. PAST HISTORY Hemoptysis. Pharyngitis. URI. INFECTION ON THE CEREBELLUM. ADDITIONAL SURGERIES: Tonsillectomy. Medications: Control Pills. Zygst. Allergies: Penicillins. SOCIAL HISTORY Never smoker. No alcohol use or drug use. ADDITIONAL NOTES The nursing notes have been reviewed. PHYSICAL EXAM Vital Signs: 09/06/2016 08:15 BP: 102/77. HR: 73. RR: 18. O2 saturation: 97%. Temp: 98.2 F. Appearance: Alert. No acute distress. Eyes: Eyes normal inspection. ENT: Pharynx normal. Neck: Normal inspection. CVS: Normal heart rate and rhythm. Heart sounds normal. Pulses normal. Respiratory: No respiratory distress. Breath sounds normal. Chest nontender. Abdomen: Soft. Moderate tenderness in the epigastric area. Bowel sounds normal. No mass. Back: Normal inspection. Skin: Skin warm. Normal skin color. No rash. Extremities: Extremities exhibit normal ROM. Neuro: Oriented X 3. PROGRESS AND PROCEDURES Course of Care: White GI cocktail. Symptoms much better. Carafat e 20 ml po Protonix 40 mg po Zofran 4 mg ODT po. Patient is stable. Patient/family counseled. Disposition: Discharged. Condition: stable and improved. CLINICAL IMPRESSION Gastroesophageal reflux disease with esophagitis. INSTRUCTIONS Do not work today, for one day until better. Avoid alcohol and NSAIDS. NSAIDS include aspirin, ibuprofen (Advil) and naproxen (Aleve). Avoid spicy foods. caffeine. (Put bed posts on 4 inch blocks.). Warnings: Further evaluation is necessary. GENERAL WARNINGS: Return or contact your physician immediately if your condition worsens or changes unexpectedly, if not improving as expected, or if other problems arise. Prescription Medications: Carafate 1 gm tablets: four times daily (30 minutes before meals and at bedtime) for 10 days. Dispense forty (40). No refills. Prilosec 40 mg capsules: take 1 capsule orally every day for 10 days. Dispense ten (10). No refill. Substitution is permissible. Follow-up: Return to the emergency department if getting worse. Follow up with your doctor in ten days. Call for an appointment. Understanding of the discharge instructions verbalized by patient. (Electronically signed by Shivam Talamantes MD 09/09/2016 20:53)
--- NOTE | 2016-09-06 09:09 | ED ORDER SUMMARY ---
..... Patient: HUNTER CHACON OrderSheet [facility] VisitID: [id number] [place] [address] 21y, F Registration Date/Time: 09/06/2016 ORDER SHEET Weight: 72.1 kg (stated) Allergies: Penicillins GENERAL ORDERS: MEDICATION ORDERS: GI Cocktail WHITE PO 30 mL with Lidocaine Viscous Mouth/Throat 15 mL, Maalox Plus Oral 15 mL (NOW) (09:07 09/06/2016 LWhalen R.N. verbal order read back to Lucía RAMIREZ) (9:09 LWhalen R.N.) Sucralfate PO 2 gm (NOW) (09:08 09/06/2016 LWhalen R.N. verbal order read back to Lucía RAMIREZ) (9:10 LWhalen R.N.) Protonix PO 40 mg (NOW) (09:08 09/06/2016 LWhalen R.N. verbal order read back to Lucía RAMIREZ) (9:10 LWhalen R.N.) Zofran ODT PO 4 mg (NOW) (09:08 09/06/2016 LWhalen R.N. verbal order read back to Lucía RAMIREZ) (9:10 LWhalen R.N.) IV FLUIDS: ORDER SHEET NOTES: [Electronically signed by Shivam Talamantes MD (20:53 09/09/2016)] [Electronically signed by Jhonatan Goel R.N. (09:55 09/11/2016)] [Electronically locked/signed by Jhonatan Goel R.N. (09:55 09/11/2016)]
--- NOTE | 2016-09-06 09:09 | ED ORDER SUMMARY ---
..... Patient: HUNTER CHACON OrderSheet [facility] VisitID: [id number] [place] [address] 21y, F Registration Date/Time: 09/06/2016 ORDER SHEET Weight: 72.1 kg (stated) Allergies: Penicillins GENERAL ORDERS: MEDICATION ORDERS: GI Cocktail WHITE PO 30 mL with Lidocaine Viscous Mouth/Throat 15 mL, Maalox Plus Oral 15 mL (NOW) (09:07 09/06/2016 LWhalen R.N. verbal order read back to Lucía RAMIREZ) (9:09 LWhalen R.N.) Sucralfate PO 2 gm (NOW) (09:08 09/06/2016 LWhalen R.N. verbal order read back to Lucía RAMIREZ) (9:10 LWhalen R.N.) Protonix PO 40 mg (NOW) (09:08 09/06/2016 LWhalen R.N. verbal order read back to Lucía RAMIREZ) (9:10 LWhalen R.N.) Zofran ODT PO 4 mg (NOW) (09:08 09/06/2016 LWhalen R.N. verbal order read back to Lucía RAMIREZ) (9:10 LWhalen R.N.) IV FLUIDS: ORDER SHEET NOTES: [Electronically signed by Shivam Talamantes MD (20:53 09/09/2016)] [Electronically signed by Jhonatan Goel R.N. (09:55 09/11/2016)] [Electronically locked/signed by Jhonatan Goel R.N. (09:55 09/11/2016)]
--- NOTE | 2016-09-11 09:55 | ED MED RECONCILIATION SUMMARY ---
Patient: HUNTER CHACON Medication Reconciliation Report VisitID: [id number] [place] [address] 21y, F Registration Date/Time: 09/06/2016 Weight: 72.1 kg Height/Length: 64 in. BMI: 27.3 ALLERGIES: Penicillins The patient's Home Medications are listed below: THE FOLLOWING MEDICATIONS NEED TO BE RECONCILED: Control Pills Zygst The source(s) of the original Home Medication information: Not obtained. The following Medications were given to the patient in the Emergency Department: GI COCKTAIL WHITE [PO] PO 30 mL, administered: 09/06/2016 8:54:00 AM Sucralfate [PO] PO 2 gm, administered: 09/06/2016 9:09:00 AM Protonix [PO] PO 40 mg, administered: 09/06/2016 9:10:00 AM Zofran ODT [PO] PO 4 mg, administered: 09/06/2016 9:10:00 AM The following Medications were prescribed to the patient: Carafate 1 gm tablets: four times daily (30 minutes before meals and at bedtime) for 10 days. Dispense forty (40). No refills. -- Shivam Talamantes MD Prilosec 40 mg capsules: take 1 capsule orally every day for 10 days. Dispense ten (10). No refill. Substitution is permissible. -- Shivam Talamantes MD
--- NOTE | 2016-09-11 09:55 | ED DISCHARGE INSTRUCTIONS ---
Patient: HUNTER CHACON General Instructions [facility] VisitID: [id number] [place] [address] 21y, F Registration Date/Time: 09/06/2016 Gastroesophageal reflux disease with esophagitis. INSTRUCTIONS Do not work today, for one day until better. Avoid alcohol and NSAIDS. NSAIDS include aspirin, ibuprofen (Advil) and naproxen (Aleve). Avoid spicy foods. caffeine. (Put bed posts on 4 inch blocks.). Warnings: Further evaluation is necessary. GENERAL WARNINGS: Return or contact your physician immediately if your condition worsens or changes unexpectedly, if not improving as expected, or if other problems arise. Prescription Medications: Carafate 1 gm tablets: four times daily (30 minutes before meals and at bedtime) for 10 days. Dispense forty (40). No refills. Prilosec 40 mg capsules: take 1 capsule orally every day for 10 days. Dispense ten (10). No refill. Substitution is permissible. Follow-up: Return to the emergency department if getting worse. Follow up with your doctor in ten days. Call for an appointment. Understanding of the discharge instructions verbalized by patient. ADDITIONAL INFORMATION GERD (Adult) The esophagus is a tube that carries food from the mouth to the stomach. A valve at the lower end of the esophagus prevents stomach acid from flowing upward. If this valve does not work properly, acid from the stomach enters the esophagus. If this occurs over and over, the acid will injure the lining of the esophagus. This condition is called GERD (gastroesophageal reflux disease) or acid reflux. When stomach acid flows upward into the esophagus, it causes burning, pressure or sharp pain in the upper abdomen or mid to lower chest. The pain can spread to the neck, back, or shoulder, similar to heart pain (angina). There may be belching, an acid taste in the back of the throat, chronic cough, or sore throat or hoarseness. GERD symptoms often occur during the day after a big meal, but it can also occur at night when lying down. Smoking,as well as drinking alcohol, increases the risk of GERD. GERD is a chronic condition. Once it begins, it is often lifelong. Treatment includes changes in eating habits and the use of acid olivier medications to decrease the amount of acid in the stomach. Symptoms often improve with treatment, but if treatment is stopped, the symptoms usually return after a few months. So most persons with GERD will need to continue treatment. Home Care: Take the prescribed acid olivier medication for the full course of treatment even if you begin to feel better sooner. This medication can take up to several days to fully control your symptoms. If you cant afford the prescribed medication, you can try [id number]-[id number] acid blockers, such as Pepcid AC, Tagamet, Zantac, or Aciphex. If these do not relieve your symptoms, a stronger acid-olivier can be tried, such as Prilosec OTC. You can use antacids, such as Tums, Rolaids, Mylanta, or Maalox, for pain. This will be useful the first few days after starting acid blockers when the blockers havent started working yet. Follow the directions on the label. Liquid antacids may work better than tablets. Note that antacids can interfere with absorption of certain medications. Specifically, do not take Tagamet (cimetidine), Zantac (ranitidine), or Carafate (sucralfate) within 1 hour of taking an antacid. Talk with your pharmacist if you have any questions. Limit or avoid fatty, fried, and spicy foods, as well as coffee, chocolate, mint, and foods with high acid content such as tomatoes and citrus fruit and juices (orange, grapefruit, lemon). Avoid alcohol and smoking. Dont eat large meals, especially at night. Frequent, smaller meals are best. Do not lie down right after eating. And dont eat anything 3 hours before going to bed. If you are overweight, losing weight will reduce symptoms. Women should not wear corsets or girdles because this increases pressure on the stomach and worsens reflux. If your symptoms occur during sleep, use a foam wedge to elevate your upper body (not just your head.) Or, place 4" blocks under the head of your bed. Follow Up with your doctor or as advised by our staff. Further testing may be needed. If you do not begin to improve over the next 4 days, contact your doctor. If you had an x-ray, CT scan, or ECG (electrocardiogram), it will be reviewed by a specialist. Youll be notified of any new findings that affect your care. Get Prompt Medical Attention if any of the following occur: Stomach pain gets worse or moves to the lower right abdomen (appendix area) Chest pain appears or gets worse, or spreads to the back, neck, shoulder, or arm Frequent vomiting (cant keep down liquids) Blood in the stool or vomit (red or black in color) Feeling weak or dizzy, fainting, or trouble breathing Fever of 100.4F (38C) or higher, or as directed by your healthcare provider [place] Diet A bland diet is used for patients with an upset stomach. It consists of foods that are mild and easy to digest. It is better to eat small frequent meals rather than three large meals a day. BEVERAGES OK: Fruit juices, non-caffeinated teas and coffee, non-carbonated iyer AVOID: Carbonated beverage, caffeinated tea and coffee, all alcoholic beverages BREAD OK: Refined white, wheat or rye bread, christoph or soda crackers, Calvin toast, plain rolls, bagels AVOID: Whole-grain bread CEREAL OK: Refined cereals: cooked or ready to eat AVOID: Whole grain cereals and granola, or those containing bran, seeds or nuts DESSERTS OK: Peanut butter and all others except those to "avoid" AVOID: Chocolate, cocoa, coconut, popcorn, nuts, seeds, jam, marmalade FRUITS OK: Canned, cooked, frozen or fresh fruits without seeds or tough skin AVOID: Olives, skin and seeds of fruit MEATS OK: All fresh or preserved meat, fish and fowl AVOID: Any that are prepared with those spices to "avoid" CHEESE & EGGS OK: Eggs, cottage cheese, cream cheese, other cheeses AVOID: All cheeses made with those spices to "avoid" POTATOES & PASTA OK: Potato, rice, macaroni, noodles, spaghetti AVOID: None SOUPS OK: All soups without heavy seasoning AVOID: Soups made with those spices to "avoid" VEGETABLES OK: Canned, cooked, fresh or frozen mildly flavored vegetables without seeds, skins or coarse fiber AVOID: Vegetables prepared with those spices to "avoid"; skin and seeds of vegetables and those with coarse fiber SPICES OK: Salt, lemon and [place] juice, vinegar, all extracts, yaya, cinnamon, thyme, mace, allspice, paprika AVOID: Reynolds powder, cloves, pepper, seed spices, garlic, gravy pickles, highly seasoned salad dressings Sucralfate Oral tablet What is this medicine? SUCRALFATE (CLARA suzy fate) helps to treat ulcers of the intestine. How should I use this medicine? Take this medicine by mouth with a glass of water. Follow the directions on the prescription label. This medicine works best if you take it on an empty stomach, 1 hour before meals. Take your doses at regular intervals. Do not take your medicine more often than directed. Do not stop taking except on your doctor's advice. Talk to your mass spec regarding the use of this medicine in children. Special care may be needed. What side effects may I notice from receiving this medicine? Side effects that you should report to your doctor or health school childcare attendant as soon as possible: allergic reactions like skin rash, itching or hives, swelling of the face, lips, or tongue difficulty breathing Side effects that usually do not require medical attention (report to your doctor or health school childcare attendant if they continue or are bothersome): back pain constipation drowsy, dizzy dry mouth headache stomach upset, gas trouble sleeping What may interact with this medicine? antacid cimetidine digoxin ketoconazole phenytoin quinidine ranitidine some antibiotics like ciprofloxacin, norfloxacin, and ofloxacin theophylline thyroid hormones warfarin What if I miss a dose? If you miss a dose, take it as soon as you can. If it is almost time for your next dose, take only that dose. Do not take double or extra doses. Where should I keep my medicine? Keep out of the reach of children. Store at room temperature between 15 and 30 degrees C (59 and 86 degrees F). Keep container tightly closed. Throw away any unused medicine after the expiration date. What should I tell my health care provider before I take this medicine? They need to know if you have any of these conditions: kidney disease an unusual or allergic reaction to sucralfate, other medicines, foods, dyes, or preservatives or trying to get breast-feeding What should I watch for while using this medicine? Visit your doctor or health school childcare attendant for regular check ups. Let your doctor know if your symptoms do not improve or if you feel worse. Antacids should not be taken within one half hour before or after this medicine. Omeprazole Magnesium Gastro-resistant tablet What is this medicine? OMEPRAZOLE (oh ME pray zol) prevents the production of acid in the stomach. It is used to treat the symptoms of heartburn. You can buy this medicine without a prescription. This product is not for long-term use, unless otherwise directed by your doctor or health school childcare attendant. How should I use this medicine? Take this medicine by mouth. Follow the directions on the product label. If you are taking this medicine without a prescription, take one tablet every day. Do not use for longer than 14 days or repeat a course of treatment more often than every 4 months unless directed by a doctor or healthcare professional. Take your dose at regular intervals every 24 hours. Swallow the tablet whole with a drink of water. Do not crush, break or chew. This medicine works best if taken on an empty stomach 30 minutes before breakfast. If you are using this medicine with the prescription of your doctor or healthcare professional, follow the directions you were given. Do not take your medicine more often than directed. Talk to your mass spec regarding the use of this medicine in children. Special care may be needed. What side effects may I notice from receiving this medicine? Side effects that you should report to your doctor or health school childcare attendant as soon as possible: allergic reactions like skin rash, itching or hives, swelling of the face, lips, or tongue bone, muscle or joint pain breathing problems chest pain or chest tightness dark yellow or brown urine diarrhea dizziness fast, irregular heartbeat feeling faint or lightheaded fever or sore throat muscle spasm palpitations redness, blistering, peeling or loosening of the skin, including inside the mouth seizures tremors unusual bleeding or bruising unusually weak or tired yellowing of the eyes or skin Side effects that usually do not require medical attention (Report these to your doctor or health school childcare attendant if they continue or are bothersome.): constipation dry mouth headache loose stools nausea What may interact with this medicine? Do not take this medicine with any of the following medications: atazanavir clopidogrel nelfinavir This medicine may also interact with the following medications: ampicillin certain medicines for anxiety or sleep certain medicines that treat or prevent blood clots like warfarin cyclosporine diazepam digoxin disulfiram iron salts phenytoin prescription medicine for fungal or yeast infection like itraconazole, ketoconazole, voriconazole saquinavir tacrolimus What if I miss a dose? If you miss a dose, take it as soon as you can. If it is almost time for your next dose, take only that dose. Do not take double or extra doses. Where should I keep my medicine? Keep out of the reach of children. Store at room temperature between 20 and 25 degrees C (68 and 77 degrees F). Protect from light and moisture. Throw away any unused medicine after the expiration date. What should I tell my health care provider before I take this medicine? They need to know if you have any of these conditions: black or bloody stools chest pain difficulty swallowing have had heartburn for over 3 months have heartburn with dizziness, lightheadedness or sweating liver disease stomach pain unexplained weight loss vomiting with blood wheezing an unusual or allergic reaction to omeprazole, other medicines, foods, dyes, or preservatives or trying to get breast-feeding What should I watch for while using this medicine? It can take several days before your heartburn gets better. Check with your doctor or health school childcare attendant if your condition does not start to get better, or if it gets worse. Do not treat diarrhea with over the counter products. Contact your doctor if you have diarrhea that lasts more than 2 days or if it is severe and watery. Do not treat yourself for heartburn with this medicine for more than 14 days in a row. You should only use this medicine for a 2-week treatment period once every 4 months. If your symptoms return shortly after your therapy is complete, or within the 4 month time frame, call your doctor or health school childcare attendant. You have been given the following additional information: GERD (Adult) Diet, [place] (Adult) Sucralfate Oral tablet Omeprazole Magnesium Gastro-resistant tablet Do not work today, for one day until better. (Electronically signed by Shivam Talamantes MD 09/09/2016 20:53)
--- NOTE | 2016-09-11 09:55 | ED MAR SUMMARY ---
..... Medication Administration Record [facility] [address] [place] [address] Patient: HUNTER CHACON Visit ID: [id number] 21y, F Weight: 72.1 kg Height/Length: 64 in BMI: 27.3 ALLERGIES: Penicillins Given 08:54 09/06/2016 Jhonatan Goel RBrooks Medication Administered: GI COCKTAIL WHITE [PO] (SIMETHICONE), Dose: 30 mL Oral Suspension PO. Medication Ordered: GI Cocktail WHITE PO 30 mL with Lidocaine Viscous Mouth/Throat 15 mL, Maalox Plus Oral 15 mL (NOW). Given 09:09/06/2016 Jhonatan Goel R.N. Medication Administered: SUCRALFATE [PO], Dose: 2 gm Oral Suspension PO. Medication Ordered: Sucralfate PO 2 gm (NOW). Given 09:09/06/2016 Jhonatan Goel, RChiN. Medication Administered: PROTONIX [PO] (PANTOPRAZOLE SODIUM), Dose: 40 mg Tablets PO. Medication Ordered: Protonix PO 40 mg (NOW). Given 09:09/06/2016 Jhonatan Goel RChiN. Medication Administered: ZOFRAN ODT [PO] (ONDANSETRON), Dose: 4 mg Oral Disintegrating Tablets PO. Medication Ordered: Zofran ODT PO 4 mg (NOW).
--- NOTE | 2016-09-11 09:55 | ED DISCHARGE INSTRUCTIONS ---
Patient: HUNTER CHACON General Instructions [facility] VisitID: [id number] [place] [address] 21y, F Registration Date/Time: 09/06/2016 Gastroesophageal reflux disease with esophagitis. INSTRUCTIONS Do not work today, for one day until better. Avoid alcohol and NSAIDS. NSAIDS include aspirin, ibuprofen (Advil) and naproxen (Aleve). Avoid spicy foods. caffeine. (Put bed posts on 4 inch blocks.). Warnings: Further evaluation is necessary. GENERAL WARNINGS: Return or contact your physician immediately if your condition worsens or changes unexpectedly, if not improving as expected, or if other problems arise. Prescription Medications: Carafate 1 gm tablets: four times daily (30 minutes before meals and at bedtime) for 10 days. Dispense forty (40). No refills. Prilosec 40 mg capsules: take 1 capsule orally every day for 10 days. Dispense ten (10). No refill. Substitution is permissible. Follow-up: Return to the emergency department if getting worse. Follow up with your doctor in ten days. Call for an appointment. Understanding of the discharge instructions verbalized by patient. ADDITIONAL INFORMATION GERD (Adult) The esophagus is a tube that carries food from the mouth to the stomach. A valve at the lower end of the esophagus prevents stomach acid from flowing upward. If this valve does not work properly, acid from the stomach enters the esophagus. If this occurs over and over, the acid will injure the lining of the esophagus. This condition is called GERD (gastroesophageal reflux disease) or acid reflux. When stomach acid flows upward into the esophagus, it causes burning, pressure or sharp pain in the upper abdomen or mid to lower chest. The pain can spread to the neck, back, or shoulder, similar to heart pain (angina). There may be belching, an acid taste in the back of the throat, chronic cough, or sore throat or hoarseness. GERD symptoms often occur during the day after a big meal, but it can also occur at night when lying down. Smoking,as well as drinking alcohol, increases the risk of GERD. GERD is a chronic condition. Once it begins, it is often lifelong. Treatment includes changes in eating habits and the use of acid olivier medications to decrease the amount of acid in the stomach. Symptoms often improve with treatment, but if treatment is stopped, the symptoms usually return after a few months. So most persons with GERD will need to continue treatment. Home Care: Take the prescribed acid olivier medication for the full course of treatment even if you begin to feel better sooner. This medication can take up to several days to fully control your symptoms. If you cant afford the prescribed medication, you can try eyed-qej-xaslemf acid blockers, such as Pepcid AC, Tagamet, Zantac, or Aciphex. If these do not relieve your symptoms, a stronger acid-olivier can be tried, such as Prilosec OTC. You can use antacids, such as Tums, Rolaids, Mylanta, or Maalox, for pain. This will be useful the first few days after starting acid blockers when the blockers havent started working yet. Follow the directions on the label. Liquid antacids may work better than tablets. Note that antacids can interfere with absorption of certain medications. Specifically, do not take Tagamet (cimetidine), Zantac (ranitidine), or Carafate (sucralfate) within 1 hour of taking an antacid. Talk with your pharmacist if you have any questions. Limit or avoid fatty, fried, and spicy foods, as well as coffee, chocolate, mint, and foods with high acid content such as tomatoes and citrus fruit and juices (orange, grapefruit, lemon). Avoid alcohol and smoking. Dont eat large meals, especially at night. Frequent, smaller meals are best. Do not lie down right after eating. And dont eat anything 3 hours before going to bed. If you are overweight, losing weight will reduce symptoms. Women should not wear corsets or girdles because this increases pressure on the stomach and worsens reflux. If your symptoms occur during sleep, use a foam wedge to elevate your upper body (not just your head.) Or, place 4" blocks under the head of your bed. Follow Up with your doctor or as advised by our staff. Further testing may be needed. If you do not begin to improve over the next 4 days, contact your doctor. If you had an x-ray, CT scan, or ECG (electrocardiogram), it will be reviewed by a specialist. Youll be notified of any new findings that affect your care. Get Prompt Medical Attention if any of the following occur: Stomach pain gets worse or moves to the lower right abdomen (appendix area) Chest pain appears or gets worse, or spreads to the back, neck, shoulder, or arm Frequent vomiting (cant keep down liquids) Blood in the stool or vomit (red or black in color) Feeling weak or dizzy, fainting, or trouble breathing Fever of 100.4F (38C) or higher, or as directed by your healthcare provider [place] Diet A bland diet is used for patients with an upset stomach. It consists of foods that are mild and easy to digest. It is better to eat small frequent meals rather than three large meals a day. BEVERAGES OK: Fruit juices, non-caffeinated teas and coffee, non-carbonated iyer AVOID: Carbonated beverage, caffeinated tea and coffee, all alcoholic beverages BREAD OK: Refined white, wheat or rye bread, christoph or soda crackers, [place] toast, plain rolls, bagels AVOID: Whole-grain bread CEREAL OK: Refined cereals: cooked or ready to eat AVOID: Whole grain cereals and granola, or those containing bran, seeds or nuts DESSERTS OK: Peanut butter and all others except those to "avoid" AVOID: Chocolate, cocoa, coconut, popcorn, nuts, seeds, jam, marmalade FRUITS OK: Canned, cooked, frozen or fresh fruits without seeds or tough skin AVOID: Olives, skin and seeds of fruit MEATS OK: All fresh or preserved meat, fish and fowl AVOID: Any that are prepared with those spices to "avoid" CHEESE & EGGS OK: Eggs, cottage cheese, cream cheese, other cheeses AVOID: All cheeses made with those spices to "avoid" POTATOES & PASTA OK: Potato, rice, macaroni, noodles, spaghetti AVOID: None SOUPS OK: All soups without heavy seasoning AVOID: Soups made with those spices to "avoid" VEGETABLES OK: Canned, cooked, fresh or frozen mildly flavored vegetables without seeds, skins or coarse fiber AVOID: Vegetables prepared with those spices to "avoid"; skin and seeds of vegetables and those with coarse fiber SPICES OK: Salt, lemon and [place] juice, vinegar, all extracts, yaya, cinnamon, thyme, mace, allspice, paprika AVOID: Alpine powder, cloves, pepper, seed spices, garlic, gravy pickles, highly seasoned salad dressings Sucralfate Oral tablet What is this medicine? SUCRALFATE (CLARA suzy fate) helps to treat ulcers of the intestine. How should I use this medicine? Take this medicine by mouth with a glass of water. Follow the directions on the prescription label. This medicine works best if you take it on an empty stomach, 1 hour before meals. Take your doses at regular intervals. Do not take your medicine more often than directed. Do not stop taking except on your doctor's advice. Talk to your chief legal officer regarding the use of this medicine in children. Special care may be needed. What side effects may I notice from receiving this medicine? Side effects that you should report to your doctor or health workforce investment act career manager as soon as possible: allergic reactions like skin rash, itching or hives, swelling of the face, lips, or tongue difficulty breathing Side effects that usually do not require medical attention (report to your doctor or health workforce investment act career manager if they continue or are bothersome): back pain constipation drowsy, dizzy dry mouth headache stomach upset, gas trouble sleeping What may interact with this medicine? antacid cimetidine digoxin ketoconazole phenytoin quinidine ranitidine some antibiotics like ciprofloxacin, norfloxacin, and ofloxacin theophylline thyroid hormones warfarin What if I miss a dose? If you miss a dose, take it as soon as you can. If it is almost time for your next dose, take only that dose. Do not take double or extra doses. Where should I keep my medicine? Keep out of the reach of children. Store at room temperature between 15 and 30 degrees C (59 and 86 degrees F). Keep container tightly closed. Throw away any unused medicine after the expiration date. What should I tell my health care provider before I take this medicine? They need to know if you have any of these conditions: kidney disease an unusual or allergic reaction to sucralfate, other medicines, foods, dyes, or preservatives or trying to get breast-feeding What should I watch for while using this medicine? Visit your doctor or health workforce investment act career manager for regular check ups. Let your doctor know if your symptoms do not improve or if you feel worse. Antacids should not be taken within one half hour before or after this medicine. Omeprazole Magnesium Gastro-resistant tablet What is this medicine? OMEPRAZOLE (oh ME pray zol) prevents the production of acid in the stomach. It is used to treat the symptoms of heartburn. You can buy this medicine without a prescription. This product is not for long-term use, unless otherwise directed by your doctor or health workforce investment act career manager. How should I use this medicine? Take this medicine by mouth. Follow the directions on the product label. If you are taking this medicine without a prescription, take one tablet every day. Do not use for longer than 14 days or repeat a course of treatment more often than every 4 months unless directed by a doctor or healthcare professional. Take your dose at regular intervals every 24 hours. Swallow the tablet whole with a drink of water. Do not crush, break or chew. This medicine works best if taken on an empty stomach 30 minutes before breakfast. If you are using this medicine with the prescription of your doctor or healthcare professional, follow the directions you were given. Do not take your medicine more often than directed. Talk to your chief legal officer regarding the use of this medicine in children. Special care may be needed. What side effects may I notice from receiving this medicine? Side effects that you should report to your doctor or health workforce investment act career manager as soon as possible: allergic reactions like skin rash, itching or hives, swelling of the face, lips, or tongue bone, muscle or joint pain breathing problems chest pain or chest tightness dark yellow or brown urine diarrhea dizziness fast, irregular heartbeat feeling faint or lightheaded fever or sore throat muscle spasm palpitations redness, blistering, peeling or loosening of the skin, including inside the mouth seizures tremors unusual bleeding or bruising unusually weak or tired yellowing of the eyes or skin Side effects that usually do not require medical attention (Report these to your doctor or health workforce investment act career manager if they continue or are bothersome.): constipation dry mouth headache loose stools nausea What may interact with this medicine? Do not take this medicine with any of the following medications: atazanavir clopidogrel nelfinavir This medicine may also interact with the following medications: ampicillin certain medicines for anxiety or sleep certain medicines that treat or prevent blood clots like warfarin cyclosporine diazepam digoxin disulfiram iron salts phenytoin prescription medicine for fungal or yeast infection like itraconazole, ketoconazole, voriconazole saquinavir tacrolimus What if I miss a dose? If you miss a dose, take it as soon as you can. If it is almost time for your next dose, take only that dose. Do not take double or extra doses. Where should I keep my medicine? Keep out of the reach of children. Store at room temperature between 20 and 25 degrees C (68 and 77 degrees F). Protect from light and moisture. Throw away any unused medicine after the expiration date. What should I tell my health care provider before I take this medicine? They need to know if you have any of these conditions: black or bloody stools chest pain difficulty swallowing have had heartburn for over 3 months have heartburn with dizziness, lightheadedness or sweating liver disease stomach pain unexplained weight loss vomiting with blood wheezing an unusual or allergic reaction to omeprazole, other medicines, foods, dyes, or preservatives or trying to get breast-feeding What should I watch for while using this medicine? It can take several days before your heartburn gets better. Check with your doctor or health workforce investment act career manager if your condition does not start to get better, or if it gets worse. Do not treat diarrhea with over the counter products. Contact your doctor if you have diarrhea that lasts more than 2 days or if it is severe and watery. Do not treat yourself for heartburn with this medicine for more than 14 days in a row. You should only use this medicine for a 2-week treatment period once every 4 months. If your symptoms return shortly after your therapy is complete, or within the 4 month time frame, call your doctor or health workforce investment act career manager. You have been given the following additional information: GERD (Adult) Diet, [place] (Adult) Sucralfate Oral tablet Omeprazole Magnesium Gastro-resistant tablet Do not work today, for one day until better. (Electronically signed by Shivam Talamantes MD 09/09/2016 20:53)
--- NOTE | 2016-09-11 09:55 | ED MED RECONCILIATION SUMMARY ---
Patient: HUNTER CHACON Medication Reconciliation Report [facility] VisitID: [id number] [place] [address] 21y, F Registration Date/Time: 09/06/2016 Weight: 72.1 kg Height/Length: 64 in. BMI: 27.3 ALLERGIES: Penicillins The patient's Home Medications are listed below: THE FOLLOWING MEDICATIONS NEED TO BE RECONCILED: Control Pills Zygst The source(s) of the original Home Medication information: Not obtained. The following Medications were given to the patient in the Emergency Department: GI COCKTAIL WHITE [PO] PO 30 mL, administered: 09/06/2016 8:54:00 AM Sucralfate [PO] PO 2 gm, administered: 09/06/2016 9:09:00 AM Protonix [PO] PO 40 mg, administered: 09/06/2016 9:10:00 AM Zofran ODT [PO] PO 4 mg, administered: 09/06/2016 9:10:00 AM The following Medications were prescribed to the patient: Carafate 1 gm tablets: four times daily (30 minutes before meals and at bedtime) for 10 days. Dispense forty (40). No refills. -- Shivam Talamantes MD Prilosec 40 mg capsules: take 1 capsule orally every day for 10 days. Dispense ten (10). No refill. Substitution is permissible. -- Shivam Talamantes MD
--- NOTE | 2016-09-11 09:55 | ED MAR SUMMARY ---
..... Medication Administration Record [facility] [address] [place] [address] Patient: HUNTER CHACON Visit ID: [id number] 21y, F Weight: 72.1 kg Height/Length: 64 in BMI: 27.3 ALLERGIES: Penicillins Given 08:54 09/06/2016 Jhonatan Goel RBrooks Medication Administered: GI COCKTAIL WHITE [PO] (SIMETHICONE), Dose: 30 mL Oral Suspension PO. Medication Ordered: GI Cocktail WHITE PO 30 mL with Lidocaine Viscous Mouth/Throat 15 mL, Maalox Plus Oral 15 mL (NOW). Given 09:09/06/2016 Jhonatan Goel R.N. Medication Administered: SUCRALFATE [PO], Dose: 2 gm Oral Suspension PO. Medication Ordered: Sucralfate PO 2 gm (NOW). Given 09:09/06/2016 Jhonatan Goel, RChiN. Medication Administered: PROTONIX [PO] (PANTOPRAZOLE SODIUM), Dose: 40 mg Tablets PO. Medication Ordered: Protonix PO 40 mg (NOW). Given 09:09/06/2016 Jhonatan Goel RChiN. Medication Administered: ZOFRAN ODT [PO] (ONDANSETRON), Dose: 4 mg Oral Disintegrating Tablets PO. Medication Ordered: Zofran ODT PO 4 mg (NOW).
== END 2016-09-06 09:24 | disposition home or self-care (01) ==
LOC: ED SRH 08:05
DX: K21.0 Gastro-esophageal reflux disease with esophagitis (principal); Z88.0 Allergy status to penicillin